=== PATIENT | male | born 1990 | race American Indian/Alaskan Native ===

== ENCOUNTER 2017-06-27 19:49 | Emergency (ER) | payer OTHER ==
[2017-06-27 22:15] LABS: INR 0.89 (0.87-1.13)
[2017-06-27 22:16] LABS: Partial Thromboplastin Time 28.1 Sec. (24.2-36.6)
--- NOTE | 2017-06-27 23:30 | XRay Report ---
FINAL REPORT PROCEDURE: XR CHEST ROUTINE 2V TECHNIQUE: PA and lateral chest radiographs were obtained. CPT 12562 HISTORY: BHARATH COMPARISON: No prior studies are available for comparison. FINDINGS: Heart: Normal. Mediastinum/Vessels: Normal. Lungs/Pleural space: Normal. Bony thorax: No acute osseous abnormality. Other: IMPRESSION: Normal examination.
[2017-06-28 00:37] LABS: Basophils % (Auto) 0.6 % (0.0-1.8); Eosinophils % (Auto) 3.6 % (0.0-4.3); Hematocrit 46.5 % (35.5-45.6); Hemoglobin 15.3 gm/dl (11.8-15.2); Mean Corpuscular HGB Conc 33 % (32-34); Mean Corpuscular Hemoglobin 28 pg (28-32); Mean Corpuscular Volume 85 fl (84-94); Platelet Count 209 K/mm3 (140-440); Red Blood Count 5.48 M/mm3 (3.65-5.03); Red Cell Distribution Width 14.9 % (13.2-15.2); White Blood Count 9.8 K/mm3 (4.5-11.0)
--- NOTE | 2017-06-28 00:42 | Emergency Department Report ---
ED Abdominal Pain HPI - General Chief Complaint: Dyspnea/Respdistress Stated Complaint: C/P Time Seen by Provider: 06/27/17 23:06 Source: patient Mode of arrival: Ambulatory Limitations: No Limitations - History of Present Illness Initial Comments: 27-year-old male past medical history none presents with complaint of 4 days of intermittent epigastric pain with associated nausea. Pain is currently mild. Patient is pointing to the right upper quadrant. Feels slightly nauseous. Denies fevers or chills denies diarrhea, passing gas and stool normally. Denies any bilious vomiting. MD Complaint: abdominal pain Onset/Timin -: days(s) Time: 03:00 Location: RUQ, epigastric Radiation: RUQ, epigastric Migration to: RUQ Severity: moderate Severity scale (0 -10): 5 Quality: aching Consistency: intermittent Associated Symptoms: nausea, vomiting - Related Data Previous Rx's Medication Instructions Recorded Last Taken Type Famotidine [Pepcid] 20 mg PO BID PRN #30 tablet 06/28/17 Unknown Rx HYDROcodone/ACETAMINOPHEN [[place] 1 each PO Q6H PRN #12 tablet 06/28/17 Unknown Rx 5-325 Tablet] Ibuprofen [Motrin] 800 mg PO Q8HR PRN #30 tablet 06/28/17 Unknown Rx Ondansetron [Zofran Odt] 4 mg PO Q8H #12 tab.rapdis 06/28/17 Unknown Rx Allergies Allergy/AdvReac Type Severity Reaction Status Date / Time No Known Allergies Allergy Unverified 06/27/17 21:42 ED Review of Systems ROS: Stated complaint: C/P Other details as noted in HPI Constitutional: denies: chills, fever Eyes: denies: eye pain, eye discharge, vision change ENT: denies: ear pain, throat pain Respiratory: denies: cough, shortness of breath, wheezing Cardiovascular: denies: chest pain, palpitations Endocrine: no symptoms reported Gastrointestinal: abdominal pain, nausea, vomiting. denies: diarrhea Genitourinary: denies: urgency, dysuria Musculoskeletal: denies: back pain, joint swelling, arthralgia Skin: denies: rash, lesions Neurological: denies: headache, weakness, paresthesias Psychiatric: denies: anxiety, depression Hematological/Lymphatic: denies: easy bleeding, easy bruising ED Past Medical Hx - Past Medical History Previous Medical History?: No - Surgical History Past Surgical History?: No - Social History Smoking Status: Never Smoker - Medications Home Medications: Home Medications Medication Instructions Recorded Confirmed Last Taken Type Famotidine [Pepcid] 20 mg PO BID PRN #30 tablet 06/28/17 Unknown Rx HYDROcodone/ACETAMINOPHEN [[place] 1 each PO Q6H PRN #12 tablet 06/28/17 Unknown Rx 5-325 Tablet] Ibuprofen [Motrin] 800 mg PO Q8HR PRN #30 tablet 06/28/17 Unknown Rx Ondansetron [Zofran Odt] 4 mg PO Q8H #12 tab.rapdis 06/28/17 Unknown Rx ED Physical Exam - General Limitations: No Limitations General appearance: alert, in no apparent distress - Head Head exam: Present: atraumatic, normocephalic - Eye Eye exam: Present: normal appearance, PERRL, EOMI - ENT ENT exam: Present: mucous membranes moist - Neck Neck exam: Present: normal inspection - Respiratory Respiratory exam: Present: normal lung sounds bilaterally. Absent: respiratory distress - Cardiovascular Cardiovascular Exam: Present: regular rate, normal rhythm. Absent: systolic murmur, diastolic murmur, rubs, gallop - GI/Abdominal GI/Abdominal exam: Present: tenderness (positive Robles's sign right upper quadrant tenderness on exam, negative iliopsoas and negative Rovsing's negative tenderness at McBurney's point), normal bowel sounds - Rectal Rectal exam: Present: deferred - Extremities Exam Extremities exam: Present: normal inspection - Back Exam Back exam: Present: normal inspection - Neurological Exam Neurological exam: Present: alert, oriented X3, CN II-XII intact, normal gait - Psychiatric Psychiatric exam: Present: normal affect, normal mood - Skin Skin exam: Present: warm, dry, intact, normal color. Absent: rash ED Course Vital Signs 06/27/17 06/27/17 21:40 22:40 Temperature 98 F Pulse Rate 67 83 Respiratory 18 18 Rate Blood Pressure 134/69 Blood Pressure 126/58 [Left] O2 Sat by Pulse 100 100 Oximetry ED Medical Decision Making - Lab Data Result diagrams: 06/28/17 00:07 06/28/17 00:07 - Medical Decision Making A/P: Biliary colic 1-right upper quadrant ultrasound shows gallstones but no acute cholecystitis on exam. Lipase and lactic acid WNL. NO SIRS criteria met. 2-labs unremarkable. Case discussed with before discharge 3-short course Crane, Zofran when necessary 4- I referred patient to general surgery and advised him to return to the ED for worsening the right upper quadrant pain or epigastric pain and inability to tolerate by mouth fevers chills or lethargy. Patient currently tolerating by mouth fluid and food without difficulty. I educated him on biliary colic. Patient's family member present at bedside for this discussion Critical care attestation.: If time is entered above; I have spent that time in minutes in the direct care of this critically ill patient, excluding procedure time. ED Disposition Clinical Impression: Biliary colic Nausea & vomiting Qualifiers: Vomiting type: unspecified Vomiting Intractability: non-intractable Qualified Code(s): R11.2 - Nausea with vomiting, unspecified Abdominal pain Qualifiers: Abdominal location: right upper quadrant Qualified Code(s): R10.11 - Right upper quadrant pain Disposition: TO HOME OR SELFCARE Is pt being admited?: No Does the pt Need Aspirin: No Condition: Stable Instructions: Biliary Colic (ED) Prescriptions: Famotidine [Pepcid] 20 mg PO BID PRN #30 tablet PRN Reason: Indigestion HYDROcodone/ACETAMINOPHEN [[place] 5-325 Tablet] 1 each PO Q6H PRN #12 tablet PRN Reason: Pain Ibuprofen [Motrin] 800 mg PO Q8HR PRN #30 tablet PRN Reason: Pain Ondansetron [Zofran Odt] 4 mg PO Q8H #12 tab.rapdis Referrals: JASWANT PAUL DO [Staff Physician] - 3-5 Days EVANGELINA ORTEGA MD [Staff Physician] - 3-5 Days Forms: Accompanied Note, Work/School Release Form(ED) Time of Disposition: 04:11
[2017-06-28] MEDS ORDERED: ZOFRAN ODT PO ONE (01:08)
[2017-06-28] MEDS ORDERED: NORCO 5/325 PO ONE (01:08)
[2017-06-28] MEDS ORDERED: PEPCID PO ONE (01:08)
[2017-06-28 01:12] LABS: Amylase 100 units/L (27-131); Anion Gap 19 mmol/L; BUN/Creatinine Ratio 14; Blood Urea Nitrogen 10 mg/dL (9-20); Calcium 9.5 mg/dL (8.4-10.2); Carbon Dioxide 26 mmol/L (22-30); Chloride 96.8 mmol/L (98-107); Glucose 87 mg/dL (75-100); Potassium 3.7 mmol/L (3.6-5.0); Sodium 138 mmol/L (137-145)
[2017-06-28 01:16] LABS: Alanine Aminotransferase 67 units/L (7-56); Albumin 4.4 g/dL (3.9-5); Albumin/Globulin Ratio 1.9 %; Alkaline Phosphatase 83 units/L (35-129); Lipase 56 units/L (13-60); Total Protein 6.7 g/dL (6.3-8.2)
[2017-06-28 01:23] LABS: Bilirubin,Direct < 0.2 mg/dL (0-0.2); Bilirubin,Indirect 0.6 mg/dL
--- NOTE | 2017-06-28 03:14 | Ultrasound Report ---
FINAL REPORT PROCEDURE: US ABDOMEN LIMITED TECHNIQUE: Real-time sonography in multiple planes of the gallbladder fossa and CBD with imaging of the adjacent liver, pancreas, and right kidney was performed with image documentation. CPT 81363 HISTORY: RUQ pain ? gallstine dilation of bile ducts COMPARISON: No prior studies are available for comparison. FINDINGS: Liver: Normal size and echotexture with no evidence of cystic or solid mass lesion. Gallbladder: There are gallstones. There is no wall thickening or pericholecystic fluid.. Intrahepatic bile ducts: Normal . Extrahepatic bile ducts: Common bile duct measures 6.5 millimeters.. Pancreas: Obscured by bowel gas.. Right kidney: Normal echotexture. No focal renal mass, calculus, or hydronephrosis. Other: No free fluid. IMPRESSION: There is cholelithiasis without evidence of cholecystitis or biliary ductal dilatation
[2017-06-28 05:19] VITALS: BP 145/74
== END 2017-06-28 04:30 | disposition home or self-care (01) ==
LOC: ED 19:49
DX: K80.50 Calculus of bile duct without cholangitis or cholecystitis without obstruction (principal); R11.2 Nausea with vomiting, unspecified; R10.11 Right upper quadrant pain
CPT/HCPCS: 36415; 71020; 76705; 80048; 80074; 82140; 82150; 83690; 84484; 85025; 85379; 85610; 85730; 93005; 93010; Q0162

== ENCOUNTER 2018-02-07 07:54 | Inpatient (IN) | payer OTHER ==
[2018-02-07] MEDS ORDERED: TORADOL IV ONE (09:46)
[2018-02-07] MEDS ORDERED: NACL 0.9% 1000 ML 1,000 ML IV ONE (09:46)
[2018-02-07] MEDS ORDERED: ZOFRAN IV ONE (09:46)
--- NOTE | 2018-02-07 09:57 | Emergency Department Report ---
ED Abdominal Pain HPI - General Chief Complaint: Back Pain/Injury Stated Complaint: BACK PAIN Time Seen by Provider: 02/07/18 09:24 Source: patient Mode of arrival: Ambulatory Limitations: No Limitations - History of Present Illness Initial Comments: 27-year-old male past medical history biliary colic presents with complaint of 3 days of persistent right upper quadrant pain with associated nausea and vomiting. Pain radiates to the back. Patient states she was evaluated at emergency department at [facility] for this issue. Patient is awake alert and oriented 3 appears uncomfortable. Denies dysuria or hematuria or increased urinary frequency. Patient states he has been vomiting and has not been able to take his analgesics as prescribed. Patient was given referral to outpatient surgery but has not followed up. MD Complaint: abdominal pain Onset/Timin -: days(s) Location: RUQ Radiation: back Migration to: RUQ Severity: severe Severity scale (0 -10): 8 Quality: sharp Consistency: constant Worsens With: eating Associated Symptoms: denies other symptoms - Related Data Previous Rx's Medication Instructions Recorded Last Taken Type Famotidine [Pepcid] 20 mg PO BID PRN #30 tablet 06/28/17 Unknown Rx HYDROcodone/ACETAMINOPHEN [[place] 1 each PO Q6H PRN #12 tablet 06/28/17 Unknown Rx 5-325 Tablet] Ibuprofen [Motrin] 800 mg PO Q8HR PRN #30 tablet 06/28/17 Unknown Rx Ondansetron [Zofran Odt] 4 mg PO Q8H #12 tab.rapdis 06/28/17 Unknown Rx Allergies Allergy/AdvReac Type Severity Reaction Status Date / Time No Known Allergies Allergy Unverified 06/27/17 21:42 ED Review of Systems ROS: Stated complaint: BACK PAIN Other details as noted in HPI Constitutional: denies: chills, fever Eyes: denies: eye pain, eye discharge, vision change ENT: denies: ear pain, throat pain Respiratory: denies: cough, shortness of breath, wheezing Cardiovascular: denies: chest pain, palpitations Endocrine: no symptoms reported Gastrointestinal: abdominal pain, nausea, vomiting. denies: diarrhea Genitourinary: denies: urgency, dysuria Musculoskeletal: denies: back pain, joint swelling, arthralgia Skin: denies: rash, lesions Neurological: denies: headache, weakness, paresthesias Psychiatric: denies: anxiety, depression Hematological/Lymphatic: denies: easy bleeding, easy bruising ED Past Medical Hx - Past Medical History Previous Medical History?: Yes Additional medical history: Gallstones - Surgical History Past Surgical History?: No - Social History Smoking Status: Former Smoker Substance Use Type: Marijuana - Medications Home Medications: Home Medications Medication Instructions Recorded Confirmed Last Taken Type Famotidine [Pepcid] 20 mg PO BID PRN #30 tablet 06/28/17 Unknown Rx HYDROcodone/ACETAMINOPHEN [[place] 1 each PO Q6H PRN #12 tablet 06/28/17 Unknown Rx 5-325 Tablet] Ibuprofen [Motrin] 800 mg PO Q8HR PRN #30 tablet 06/28/17 Unknown Rx Ondansetron [Zofran Odt] 4 mg PO Q8H #12 tab.rapdis 06/28/17 Unknown Rx ED Physical Exam - General Limitations: No Limitations General appearance: alert, in no apparent distress - Head Head exam: Present: atraumatic, normocephalic - Eye Eye exam: Present: normal appearance, PERRL, EOMI - ENT ENT exam: Present: mucous membranes moist - Neck Neck exam: Present: normal inspection - Respiratory Respiratory exam: Present: normal lung sounds bilaterally. Absent: respiratory distress - Cardiovascular Cardiovascular Exam: Present: regular rate, normal rhythm. Absent: systolic murmur, diastolic murmur, rubs, gallop - GI/Abdominal GI/Abdominal exam: Present: tenderness (right upper quadrant tenderness on exam) , normal bowel sounds - Rectal Rectal exam: Present: deferred - Extremities Exam Extremities exam: Present: normal inspection - Back Exam Back exam: Present: normal inspection - Neurological Exam Neurological exam: Present: alert, oriented X3 - Psychiatric Psychiatric exam: Present: normal affect, normal mood - Skin Skin exam: Present: warm, dry, intact, normal color. Absent: rash ED Course Vital Signs 02/07/18 02/07/18 08:00 10:08 Temperature 97.8 F Pulse Rate 82 Respiratory 18 20 Rate Blood Pressure 124/80 O2 Sat by Pulse 99 Oximetry ED Medical Decision Making - Lab Data Result diagrams: 02/07/18 09:55 02/07/18 09:55 - Medical Decision Making A/P: Abdominal pain, acute cholecystitis 1-case discussed with on-call surgeon who spoke with 2-patient to be admitted for IV fluid resuscitation and evaluation by general surgery 3-case discussed with hospitalist Dr. Zambrano 4- nothing by mouth, IV fluid, antiemetics, analgesics. I explained clinical plan to the patient and he is in agreement Critical care attestation.: If time is entered above; I have spent that time in minutes in the direct care of this critically ill patient, excluding procedure time. ED Disposition Clinical Impression: Acute cholecystitis Disposition: 09 OP ADMIT IP TO THIS HOSP Is pt being admited?: Yes Does the pt Need Aspirin: No Condition: Stable Referrals: PRIMARY CARE, [Primary Care Provider] - 3-5 Days
[2018-02-07 10:15] LABS: Basophils # (Auto) 0.1 K/mm3 (0.0-0.1); Basophils % (Auto) 0.7 % (0.0-1.8); Eosinophils # (Auto) 0.2 K/mm3 (0.0-0.4); Eosinophils % (Auto) 2.3 % (0.0-4.3); Hemoglobin 16.9 gm/dl (11.8-15.2); Lymphocytes # (Auto) 1.4 K/mm3 (1.2-5.4); Lymphocytes % (Auto) 16.2 % (13.4-35.0); Mean Corpuscular HGB Conc 34 % (32-34); Mean Corpuscular Hemoglobin 29 pg (28-32); Mean Corpuscular Volume 85 fl (84-94); Monocytes # (Auto) 0.6 K/mm3 (0.0-0.8); Monocytes % (Auto) 7.3 % (0.0-7.3); Platelet Count 193 K/mm3 (140-440); Red Blood Count 5.75 M/mm3 (3.65-5.03)
[2018-02-07 10:24] LABS: INR 0.9 (0.87-1.13)
[2018-02-07 10:36] LABS: Bilirubin,Urine NEG (Negative); Blood,Urine NEG (Negative); Color,Urine Yellow (Yellow); Mucus,Urine FEW /HPF
[2018-02-07 10:41] LABS: Alanine Aminotransferase 19 units/L (7-56); Albumin 4.1 g/dL (3.9-5); BUN/Creatinine Ratio 10; Blood Urea Nitrogen 8 mg/dL (9-20); Calcium 9.1 mg/dL (8.4-10.2); Hemolysis Index 12; Lipase 27 units/L (13-60)
[2018-02-07 10:47] LABS: Bilirubin,Direct < 0.2 mg/dL (0-0.2)
--- NOTE | 2018-02-07 10:55 | Ultrasound Report ---
ULTRASOUND ABDOMEN LIMITED INDICATION: RUQ pain. History of gallstones. COMPARISON: 06/28/2017 US. FINDINGS: Right upper quadrant ultrasound suggests slight hepatic coarsening with grossly preserved contours. No focal suspicious hepatic lesion or biliary dilatation. Couple of small echogenic gallstones measuring approximately 5 mm again noted towards the gallbladder neck. Gallbladder wall thickness is 2.2 mm. Slight pericholecystic lucency as on image 30 however not entirely excluded for subtle gallbladder wall edema or pericholecystic fluid. Positive sonographic Robles's sign elicited. Gallbladder sludge also seen. CBD caliber 2.4 mm. Normal imaged pancreas, IVC and abdominal aorta. Nonhydronephrotic 10.6 x 4.6 x 4.6 cm right kidney with cortical thickness of 1.5 cm. CONCLUSION: Sonographic findings not excluded for subtle acute cholecystitis in an appropriate clinical setting in this patient with known cholelithiasis and gallbladder sludge, as described. Please correlate. Thank you for the opportunity to participate in this patient's care.
[2018-02-07] MEDS ORDERED: SUBLIMAZE IV ONE (11:13)
[2018-02-07] MEDS ORDERED: LACTATED RINGERS 1,000 ML IV ONE (12:05)
--- NOTE | 2018-02-07 13:15 | History and Physical Report ---
History of Present Illness Date of admission: 02/07/18 12:08 Chief complaint: My stomach hurts History of present illness: 27 YO Male with Obesity, cholelithiasis with biliary colic presents to ED for evaluation. Pt states that he has experienced abdominal pain for the past 1 week , with worsening symptoms over the past 3 days. Pt states that pain is 8/10, associated with nausea, and multiple episodes of vomiting, with radiation of abdominal pain to his back. Pain is worsened with meals, constant. Pt seen and evaluated in ED and found to have Acute cholecystitis. Pt admitted to medical floor. Surgery team consulted in ED. Pt placed on Iv antibiotics in ED. Past History Past Medical History: other (Obeisty, cholelithiasis.) Past Surgical History: No surgical history, Other (reviewed) Social history: single Family history: no significant family history Medications and Allergies Allergies Allergy/AdvReac Type Severity Reaction Status Date / Time No Known Allergies Allergy Unverified 06/27/17 21:42 Home Medications Medication Instructions Recorded Confirmed Last Taken Type No Known Home Medications [No 02/07/18 02/07/18 Unknown History Reported Home Medications] Review of Systems Constitutional: no weight loss, no weight gain, no fever, no chills Ears, nose, mouth and throat: no ear pain, no ear discharge, no tinnitis, no decreased hearing, no nose pain Cardiovascular: no chest pain, no orthopnea, no palpitations, no rapid/ irregular heart beat, no edema, no syncope Respiratory: no cough, no cough with sputum, no excessive sputum, no hemoptysis Gastrointestinal: abdominal pain, nausea, vomiting Genitourinary Male: no dysuria, no hematuria, no flank pain, no discharge, no urinary frequency, no urinary hesitancy, no nocturia Rectal: no pain, no incontinence, no bleeding Musculoskeletal: no neck stiffness, no neck pain, no shooting arm pain, no arm numbness/tingling, no low back pain, no shooting leg pain, no leg numbness/ tingling Integumentary: no rash, no pruritis, no redness, no sores, no wounds Neurological: no transient paralysis, no paralysis, no weakness, no parathesias , no numbness, no tingling, no seizures, no syncope Psychiatric: no anxiety, no memory loss, no change in sleep habits, no sleep disturbances, no insomnia, no hypersomnia, no change in appetite, no change in libido, no suicidal ideation Endocrine: no cold intolerance, no heat intolerance, no polyphagia, no excessive thirst, no polydipsia, no polyuria, no nocturia Hematologic/Lymphatic: no easy bruising, no easy bleeding Allergic/Immunologic: no urticaria, no allergic rhinitis, no wheezing Exam - Constitutional Vitals: Temp Pulse Resp BP Pulse Ox 98.0 F 59 L 18 120/70 99 02/07/18 12:34 02/07/18 12:34 02/07/18 12:36 02/07/18 12:34 02/07/18 12:36 General appearance: Present: mild distress, obese - EENT Eyes: Present: PERRL ENT: hearing intact, clear oral mucosa - Neck Neck: Present: supple, normal ROM - Respiratory Respiratory effort: normal Respiratory: bilateral: CTA - Cardiovascular Heart Sounds: Present: S1 & S2. Absent: rub, click - Extremities Extremities: pulses symmetrical, No edema Peripheral Pulses: within normal limits - Abdominal General gastrointestinal: Present: soft, tender, non-distended, normal bowel sounds Localized gastrointestinal: tender: diffuse Male genitourinary: Present: normal - Integumentary Integumentary: Present: clear, warm, dry - Musculoskeletal Musculoskeletal: gait normal, strength equal bilaterally - Psychiatric Psychiatric: appropriate mood/affect, intact judgment & insight - Neurologic Neurologic: CNII-XII intact, moves all extremities Results - Labs CBC & Chem 7: 02/07/18 09:55 02/07/18 09:55 Labs: Abnormal lab results 02/07/18 02/07/18 Range/Units 09:55 09:55 RBC 5.75 H (3.65-5.03) M/mm3 Hgb 16.9 H (11.8-15.2) gm/dl Hct 49.0 H (35.5-45.6) % Seg Neutrophils % 73.5 H (40.0-70.0) % BUN 8 L (9-20) mg/dL Glucose 102 H (75-100) mg/dL Assessment and Plan - Patient Problems (1) Acute cholecystitis Current Visit: Yes Status: Acute Plan to address problem: IV antibiotics, IVF resuscitation, monitor uop q shift, bowel rest, NPO status, surgery team consulted in ED (2) Obesity (BMI 30.0-34.9) Current Visit: Yes Status: Acute Plan to address problem: Increased physical activity, balanced diet at discharge. (3) DVT prophylaxis Current Visit: Yes Status: Acute Plan to address problem: SCD to ble while in bed
[2018-02-07] MEDS ORDERED: TYLENOL PO PRN (13:32)
[2018-02-07] MEDS ORDERED: SODIUM CHLORIDE FLUSH SYRINGE 10 ML IV PRN (13:32)
[2018-02-07] MEDS ORDERED: PROVENTIL IH PRN (13:32)
[2018-02-07] MEDS: D5/0.45NS 1,000 ML IV SCH (14:27)
[2018-02-07] MEDS ORDERED: LEVAQUIN 500MG/100ML 500 MG/100 ML BAG IV SCH (17:00)
[2018-02-07] MEDS: FLAGYL 500 MG/100 ML 500 MG/100 ML BAG IV SCH (17:06)
[2018-02-07] MEDS: MORPHINE IV PRN ×2 (17:06→21:52)
[2018-02-07] MEDS: LEVAQUIN 750MG/150ML 750 MG/150 ML BAG IV SCH (18:45)
[2018-02-07] MEDS: PEPCID IV SCH (21:52)
[2018-02-07] MEDS: ZOFRAN IV PRN (21:52)
[2018-02-07] MEDS: SODIUM CHLORIDE FLUSH SYRINGE 10 ML IV SCH (23:49)
[2018-02-08] MEDS: FLAGYL 500 MG/100 ML 500 MG/100 ML BAG IV SCH ×3 (00:39→16:43)
[2018-02-08 05:59] LABS: Hematocrit 43.7 % (35.5-45.6); Hemoglobin 15.2 gm/dl (11.8-15.2); Mean Corpuscular HGB Conc 35 % (32-34); Mean Corpuscular Hemoglobin 30 pg (28-32); Mean Corpuscular Volume 85 fl (84-94); Platelet Count 167 K/mm3 (140-440); Red Blood Count 5.15 M/mm3 (3.65-5.03); Red Cell Distribution Width 13.6 % (13.2-15.2)
[2018-02-08 06:23] LABS: Alanine Aminotransferase 15 units/L (7-56); Albumin 3.5 g/dL (3.9-5); BUN/Creatinine Ratio 7; Blood Urea Nitrogen 6 mg/dL (9-20); Calcium 8.7 mg/dL (8.4-10.2); Hemolysis Index 9
[2018-02-08] MEDS: PEPCID IV SCH ×2 (09:45→21:23)
[2018-02-08] MEDS: SODIUM CHLORIDE FLUSH SYRINGE 10 ML IV SCH ×2 (09:45→21:24)
[2018-02-08] MEDS ORDERED: LEVAQUIN 500MG/100ML 500 MG/100 ML BAG IV SCH (10:00)
--- NOTE | 2018-02-08 10:18 | Progress Note ---
Assessment and Plan Assessment and plan: Acute cholecystitis IV antibiotics, IVF resuscitation, monitor uop q shift, bowel rest, NPO status, surgery team consulted in ED Pain control Obesity (BMI 30.0-34.9) Increased physical activity, balanced diet at discharge. DVT prophylaxis SCD to ble while in bed History Interval history: Patient still complains of pain. Otherwise no new issues overnight. Hospitalist Physical - Constitutional Vitals: Temp Pulse Resp BP Pulse Ox 98.0 F 55 L 18 114/67 100 02/08/18 05:44 02/08/18 05:44 02/08/18 05:44 02/08/18 05:44 02/08/18 05:44 General appearance: Present: mild distress, obese - EENT Eyes: Present: PERRL, EOM intact ENT: hearing intact, clear oral mucosa, dentition normal - Neck Neck: Present: supple, normal ROM - Respiratory Respiratory effort: normal Respiratory: bilateral: CTA - Cardiovascular Rhythm: regular Heart Sounds: Present: S1 & S2. Absent: gallop, rub - Extremities Extremities: no ischemia, No edema, Full ROM - Abdominal General gastrointestinal: soft, tender (RUQ), non-distended, normal bowel sounds Localized gastrointestinal: tender: RUQ (moderate) - Integumentary Integumentary: Present: clear, warm, dry - Neurologic Neurologic: CNII-XII intact, moves all extremities Results - Labs CBC & Chem 7: 02/08/18 05:43 02/08/18 05:43 Labs: Laboratory Last Values WBC 9.4 K/mm3 (4.5-11.0) 02/08/18 05:43 RBC 5.15 M/mm3 (3.65-5.03) H 02/08/18 05:43 Hgb 15.2 gm/dl (11.8-15.2) 02/08/18 05:43 Hct 43.7 % (35.5-45.6) 02/08/18 05:43 MCV 85 fl (84-94) 02/08/18 05:43 MCH 30 pg (28-32) 02/08/18 05:43 MCHC 35 % (32-34) H 02/08/18 05:43 RDW 13.6 % (13.2-15.2) 02/08/18 05:43 Plt Count 167 K/mm3 (140-440) 02/08/18 05:43 Lymph % (Auto) 16.2 % (13.4-35.0) 02/07/18 09:55 [place] % (Auto) 7.3 % (0.0-7.3) 02/07/18 09:55 Eos % (Auto) 2.3 % (0.0-4.3) 02/07/18 09:55 Baso % (Auto) 0.7 % (0.0-1.8) 02/07/18 09:55 Lymph # 1.4 K/mm3 (1.2-5.4) 02/07/18 09:55 [place] # 0.6 K/mm3 (0.0-0.8) 02/07/18 09:55 Eos # 0.2 K/mm3 (0.0-0.4) 02/07/18 09:55 Baso # 0.1 K/mm3 (0.0-0.1) 02/07/18 09:55 Seg Neutrophils % 73.5 % (40.0-70.0) H 02/07/18 09:55 Seg Neutrophils # 6.5 K/mm3 (1.8-7.7) 02/07/18 09:55 PT 12.6 Sec. (12.2-14.9) 02/07/18 09:55 INR 0.90 (0.87-1.13) 02/07/18 09:55 Sodium 141 mmol/L (137-145) 02/08/18 05:43 Potassium 3.9 mmol/L (3.6-5.0) 02/08/18 05:43 Chloride 103.6 mmol/L (98-107) 02/08/18 05:43 Carbon Dioxide 25 mmol/L (22-30) 02/08/18 05:43 Anion Gap 16 mmol/L 02/08/18 05:43 BUN 6 mg/dL (9-20) L 02/08/18 05:43 Creatinine 0.9 mg/dL (0.8-1.5) 02/08/18 05:43 Estimated GFR > 60 ml/min 02/08/18 05:43 BUN/Creatinine Ratio 7 % 02/08/18 05:43 Glucose 88 mg/dL (75-100) 02/08/18 05:43 Lactic Acid 0.80 mmol/L (0.7-2.0) 02/07/18 09:55 Calcium 8.7 mg/dL (8.4-10.2) 02/08/18 05:43 Total Bilirubin 0.80 mg/dL (0.1-1.2) 02/08/18 05:43 Direct Bilirubin < 0.2 mg/dL (0-0.2) 02/07/18 09:55 Indirect Bilirubin 0.5 mg/dL 02/07/18 09:55 AST 21 units/L (5-40) 02/08/18 05:43 ALT 15 units/L (7-56) 02/08/18 05:43 Alkaline Phosphatase 62 units/L (35-129) 02/08/18 05:43 Total Protein 5.4 g/dL (6.3-8.2) L 02/08/18 05:43 Albumin 3.5 g/dL (3.9-5) L 02/08/18 05:43 Albumin/Globulin Ratio 1.8 % 02/08/18 05:43 Amylase 84 units/L (27-131) 02/07/18 09:55 Lipase 27 units/L (13-60) 02/07/18 09:55 Urine Color Yellow (Yellow) 02/07/18 09:59 Urine Turbidity Clear (Clear) 02/07/18 09:59 Urine pH 5.0 (5.0-7.0) 02/07/18 09:59 Ur Specific [place] 1.029 (1.003-1.030) 02/07/18 09:59 Urine Protein 30 mg/dl mg/dL (Negative) 02/07/18 09:59 Urine Glucose (UA) Neg mg/dL (Negative) 02/07/18 09:59 Urine Ketones 80 mg/dL (Negative) 02/07/18 09:59 Urine Blood Neg (Negative) 02/07/18 09:59 Urine Nitrite Neg (Negative) 02/07/18 09:59 Urine Bilirubin Neg (Negative) 02/07/18 09:59 Urine Urobilinogen 2.0 mg/dL (<2.0) 02/07/18 09:59 Ur Leukocyte Esterase Neg (Negative) 02/07/18 09:59 Urine WBC (Auto) 1.0 /HPF (0.0-6.0) 02/07/18 09:59 Urine RBC (Auto) 3.0 /HPF (0.0-6.0) 02/07/18 09:59 U Epithel Cells (Auto) < 1.0 /HPF (0-13.0) 02/07/18 09:59 Urine Mucus Few /HPF 02/07/18 09:59 Blood Type B POSITIVE 02/07/18 09:55 Antibody Screen Negative 02/07/18 09:55
[2018-02-08] MEDS: DILAUDID IV PRN ×2 (11:08→21:23)
--- NOTE | 2018-02-08 12:34 | Progress Note ---
Assessment and Plan Full consult dictated 27 y/o healthy male. cholecystitis. seen in [facility] ER (where pt lives) but apparently not admitted. Seen in ER here yesterday c/o epig and RUQ abd pain + N&V Abd softer, less tender today. GB US - + stones imp cholecystitis continue NPO and IV Levaquin will schedule for lap GB Selected Entries 02/08/18 11:50 Temperature 98.3 F Pulse Rate 56 L Respiratory 20 Rate Blood Pressure 109/55 Laboratory Tests 02/07/18 02/08/18 02/08/18 09:55 05:43 05:43 WBC 9.4 Hgb 15.2 Hct 43.7 Sodium 141 Potassium 3.9 Chloride 103.6 Carbon Dioxide 25 BUN 6 L Creatinine 0.9 Total Bilirubin 0.80 AST 21 ALT 15 Alkaline Phosphatase 62 Amylase 84 Lipase 27 Objective Vital Signs - 12hr 02/08/18 02/08/18 05:44 11:50 Temperature 98.0 F 98.3 F Pulse Rate 55 L 56 L Respiratory 18 20 Rate Blood Pressure 114/67 109/55 O2 Sat by Pulse 100 97 Oximetry - Labs 02/08/18 05:43 02/08/18 05:43 Diabetes panel 02/08/18 Range/Units 05:43 Sodium 141 (137-145) mmol/L Potassium 3.9 (3.6-5.0) mmol/L Chloride 103.6 (98-107) mmol/L Carbon Dioxide 25 (22-30) mmol/L BUN 6 L (9-20) mg/dL Creatinine 0.9 (0.8-1.5) mg/dL Glucose 88 (75-100) mg/dL Calcium 8.7 (8.4-10.2) mg/dL AST 21 (5-40) units/L ALT 15 (7-56) units/L Alkaline Phosphatase 62 (35-129) units/L Total Protein 5.4 L (6.3-8.2) g/dL Albumin 3.5 L (3.9-5) g/dL Calcium panel 02/08/18 Range/Units 05:43 Calcium 8.7 (8.4-10.2) mg/dL Albumin 3.5 L (3.9-5) g/dL Pituitary panel 02/08/18 Range/Units 05:43 Sodium 141 (137-145) mmol/L Potassium 3.9 (3.6-5.0) mmol/L Chloride 103.6 (98-107) mmol/L Carbon Dioxide 25 (22-30) mmol/L BUN 6 L (9-20) mg/dL Creatinine 0.9 (0.8-1.5) mg/dL Glucose 88 (75-100) mg/dL Calcium 8.7 (8.4-10.2) mg/dL Adrenal panel 02/08/18 Range/Units 05:43 Sodium 141 (137-145) mmol/L Potassium 3.9 (3.6-5.0) mmol/L Chloride 103.6 (98-107) mmol/L Carbon Dioxide 25 (22-30) mmol/L BUN 6 L (9-20) mg/dL Creatinine 0.9 (0.8-1.5) mg/dL Glucose 88 (75-100) mg/dL Calcium 8.7 (8.4-10.2) mg/dL Total Bilirubin 0.80 (0.1-1.2) mg/dL AST 21 (5-40) units/L ALT 15 (7-56) units/L Alkaline Phosphatase 62 (35-129) units/L Total Protein 5.4 L (6.3-8.2) g/dL Albumin 3.5 L (3.9-5) g/dL
[2018-02-08] MEDS: LEVAQUIN 750MG/150ML 750 MG/150 ML BAG IV SCH (17:50)
[2018-02-08] MEDS: D5/0.45NS 1,000 ML IV SCH (17:53)
[2018-02-08] MEDS: ZOFRAN IV PRN (21:32)
--- NOTE | 2018-02-08 22:06 | Consultation ---
REASON FOR CONSULTATION: Rule out cholecystitis. HISTORY OF PRESENT ILLNESS: The patient is a healthy 27-year-old gentleman who was apparently seen at [facility] with a chief complaint of epigastric and right upper quadrant abdominal pain and told he had cholecystitis. However, it appears the patient was not admitted there and subsequently arrived to the ER here at [facility] with same complaints. PAST MEDICAL HISTORY: Essentially negative. PAST SURGICAL HISTORY: Negative. ALLERGIES: No known allergies. MEDICATIONS: No medications. FAMILY HISTORY: Negative. SOCIAL HISTORY: Denies any smoking or drinking. REVIEW OF SYSTEMS: Noncontributory. PHYSICAL EXAMINATION: GENERAL: At this time reveals the patient to be awake, alert, cooperative, does state he still has some pain, but is " VITAL SIGNS: Shown to be afebrile with a temperature 98.3, blood pressure 109/55, pulse of 56, respirations of 18. HEENT: Pupils are equal and reactive to light and accommodation. Sclerae is nonicteric. ABDOMEN: Examination of the abdomen reveals to be flat and soft. There is mild right upper quadrant tenderness, no guarding can be elicited at this time. Bowel sounds are present. LABORATORY DATA: Lab work at present includes a CBC which shows a white count of 9.4, H and H is 15 and 43. Electrolytes are essentially within normal limits. Total bilirubin is 0.8, AST is 21, ALT 15, alkaline phosphatase is 62. Amylase is normal at 84 and lipase is normal at 27. A gallbladder ultrasound was performed, which revealed some gallstone as well as sludge. Gallbladder wall is approximately 2.2 mm. IMPRESSION: At this time is that of a healthy 27-year-old male, rule out cholecystitis. RECOMMENDATION: Would be to keep the patient n.p.o. while his pain remains present. Also, IV fluid hydration as well as IV Levaquin. I will monitor clinically over the weekend and schedule for laparoscopic cholecystectomy on Sunday. JOB# [id number] LAVINIA/NTS
[2018-02-09] MEDS: FLAGYL 500 MG/100 ML 500 MG/100 ML BAG IV SCH ×3 (00:25→17:39)
[2018-02-09 06:09] LABS: Basophils % (Auto) 0.6 % (0.0-1.8); Eosinophils # (Auto) 0.4 K/mm3 (0.0-0.4); Eosinophils % (Auto) 5.4 % (0.0-4.3); Hematocrit 45.6 % (35.5-45.6); Hemoglobin 15.6 gm/dl (11.8-15.2); Lymphocytes # (Auto) 1.2 K/mm3 (1.2-5.4); Lymphocytes % (Auto) 15.5 % (13.4-35.0); Mean Corpuscular HGB Conc 34 % (32-34); Mean Corpuscular Hemoglobin 29 pg (28-32); Mean Corpuscular Volume 86 fl (84-94); Monocytes # (Auto) 0.9 K/mm3 (0.0-0.8); Monocytes % (Auto) 12.2 % (0.0-7.3); Platelet Count 170 K/mm3 (140-440); Red Cell Distribution Width 13.8 % (13.2-15.2)
[2018-02-09 06:32] LABS: BUN/Creatinine Ratio 5; Blood Urea Nitrogen 4 mg/dL (9-20); Calcium 8.9 mg/dL (8.4-10.2); Hemolysis Index 3
[2018-02-09] MEDS: PEPCID IV SCH ×2 (10:29→21:44)
[2018-02-09] MEDS: SODIUM CHLORIDE FLUSH SYRINGE 10 ML IV SCH ×2 (10:29→21:45)
--- NOTE | 2018-02-09 11:14 | Progress Note ---
Assessment and Plan Assessment and plan: Acute cholecystitis IV antibiotics, IVF resuscitation, monitor uop q shift, bowel rest, NPO status Continue Pain control Patient scheduled for laparoscopic cholecystectomy on Sunday. Obesity (BMI 30.0-34.9) Increased physical activity, balanced diet at discharge. DVT prophylaxis SCD to ble while in bed History Interval history: Patient still complains of pain. Otherwise no new issues overnight. Hospitalist Physical - Constitutional Vitals: Temp Pulse Resp BP Pulse Ox 98.4 F 51 L 19 113/59 95 02/09/18 06:05 02/09/18 06:05 02/09/18 06:05 02/09/18 06:05 02/09/18 08:31 General appearance: Present: mild distress, obese - EENT Eyes: Present: PERRL, EOM intact ENT: hearing intact, clear oral mucosa, dentition normal - Neck Neck: Present: supple, normal ROM - Respiratory Respiratory effort: normal Respiratory: bilateral: CTA - Cardiovascular Rhythm: regular Heart Sounds: Present: S1 & S2. Absent: gallop, rub - Extremities Extremities: no ischemia, No edema, Full ROM - Abdominal General gastrointestinal: soft, non-tender, non-distended, normal bowel sounds - Integumentary Integumentary: Present: clear, warm, dry - Neurologic Neurologic: CNII-XII intact, moves all extremities Results - Labs CBC & Chem 7: 02/09/18 05:29 02/09/18 05:29 Labs: Laboratory Last Values WBC 7.6 K/mm3 (4.5-11.0) 02/09/18 05:29 RBC 5.30 M/mm3 (3.65-5.03) H 02/09/18 05:29 Hgb 15.6 gm/dl (11.8-15.2) H 02/09/18 05:29 Hct 45.6 % (35.5-45.6) 02/09/18 05:29 MCV 86 fl (84-94) 02/09/18 05:29 MCH 29 pg (28-32) 02/09/18 05:29 MCHC 34 % (32-34) 02/09/18 05:29 RDW 13.8 % (13.2-15.2) 02/09/18 05:29 Plt Count 170 K/mm3 (140-440) 02/09/18 05:29 Lymph % (Auto) 15.5 % (13.4-35.0) 02/09/18 05:29 [place] % (Auto) 12.2 % (0.0-7.3) H 02/09/18 05:29 Eos % (Auto) 5.4 % (0.0-4.3) H 02/09/18 05:29 Baso % (Auto) 0.6 % (0.0-1.8) 02/09/18 05:29 Lymph # 1.2 K/mm3 (1.2-5.4) 02/09/18 05:29 [place] # 0.9 K/mm3 (0.0-0.8) H 02/09/18 05:29 Eos # 0.4 K/mm3 (0.0-0.4) 02/09/18 05:29 Baso # 0.0 K/mm3 (0.0-0.1) 02/09/18 05:29 Seg Neutrophils % 66.3 % (40.0-70.0) 02/09/18 05:29 Seg Neutrophils # 5.1 K/mm3 (1.8-7.7) 02/09/18 05:29 PT 12.6 Sec. (12.2-14.9) 02/07/18 09:55 INR 0.90 (0.87-1.13) 02/07/18 09:55 Sodium 139 mmol/L (137-145) 02/09/18 05:29 Potassium 3.8 mmol/L (3.6-5.0) 02/09/18 05:29 Chloride 100.1 mmol/L (98-107) 02/09/18 05:29 Carbon Dioxide 24 mmol/L (22-30) 02/09/18 05:29 Anion Gap 19 mmol/L 02/09/18 05:29 BUN 4 mg/dL (9-20) L 02/09/18 05:29 Creatinine 0.8 mg/dL (0.8-1.5) 02/09/18 05:29 Estimated GFR > 60 ml/min 02/09/18 05:29 BUN/Creatinine Ratio 5 % 02/09/18 05:29 Glucose 80 mg/dL (75-100) 02/09/18 05:29 Lactic Acid 0.80 mmol/L (0.7-2.0) 02/07/18 09:55 Calcium 8.9 mg/dL (8.4-10.2) 02/09/18 05:29 Total Bilirubin 0.80 mg/dL (0.1-1.2) 02/08/18 05:43 Direct Bilirubin < 0.2 mg/dL (0-0.2) 02/07/18 09:55 Indirect Bilirubin 0.5 mg/dL 02/07/18 09:55 AST 21 units/L (5-40) 02/08/18 05:43 ALT 15 units/L (7-56) 02/08/18 05:43 Alkaline Phosphatase 62 units/L (35-129) 02/08/18 05:43 Total Protein 5.4 g/dL (6.3-8.2) L 02/08/18 05:43 Albumin 3.5 g/dL (3.9-5) L 02/08/18 05:43 Albumin/Globulin Ratio 1.8 % 02/08/18 05:43 Amylase 84 units/L (27-131) 02/07/18 09:55 Lipase 27 units/L (13-60) 02/07/18 09:55 Urine Color Yellow (Yellow) 02/07/18 09:59 Urine Turbidity Clear (Clear) 02/07/18 09:59 Urine pH 5.0 (5.0-7.0) 02/07/18 09:59 Ur Specific [place] 1.029 (1.003-1.030) 02/07/18 09:59 Urine Protein 30 mg/dl mg/dL (Negative) 02/07/18 09:59 Urine Glucose (UA) Neg mg/dL (Negative) 02/07/18 09:59 Urine Ketones 80 mg/dL (Negative) 02/07/18 09:59 Urine Blood Neg (Negative) 02/07/18 09:59 Urine Nitrite Neg (Negative) 02/07/18 09:59 Urine Bilirubin Neg (Negative) 02/07/18 09:59 Urine Urobilinogen 2.0 mg/dL (<2.0) 02/07/18 09:59 Ur Leukocyte Esterase Neg (Negative) 02/07/18 09:59 Urine WBC (Auto) 1.0 /HPF (0.0-6.0) 02/07/18 09:59 Urine RBC (Auto) 3.0 /HPF (0.0-6.0) 02/07/18 09:59 U Epithel Cells (Auto) < 1.0 /HPF (0-13.0) 02/07/18 09:59 Urine Mucus Few /HPF 02/07/18 09:59 Blood Type B POSITIVE 02/07/18 09:55 Antibody Screen Negative 02/07/18 09:55
[2018-02-09] MEDS: MORPHINE IV PRN (14:43)
[2018-02-09] MEDS: D5/0.45NS 1,000 ML IV SCH (17:38)
[2018-02-09] MEDS: LEVAQUIN 750MG/150ML 750 MG/150 ML BAG IV SCH (21:44)
[2018-02-10] MEDS: FLAGYL 500 MG/100 ML 500 MG/100 ML BAG IV SCH ×4 (01:05→23:34)
[2018-02-10] MEDS: ZOFRAN IV PRN ×2 (07:00→21:58)
[2018-02-10 08:55] LABS: Basophils # (Auto) 0.1 K/mm3 (0.0-0.1); Basophils % (Auto) 0.8 % (0.0-1.8); Eosinophils # (Auto) 0.2 K/mm3 (0.0-0.4); Eosinophils % (Auto) 2.8 % (0.0-4.3); Hematocrit 47.8 % (35.5-45.6); Hemoglobin 16.1 gm/dl (11.8-15.2); Lymphocytes % (Auto) 13.4 % (13.4-35.0); Mean Corpuscular HGB Conc 34 % (32-34); Mean Corpuscular Hemoglobin 29 pg (28-32); Mean Corpuscular Volume 86 fl (84-94); Monocytes # (Auto) 0.9 K/mm3 (0.0-0.8); Monocytes % (Auto) 12.1 % (0.0-7.3); Platelet Count 179 K/mm3 (140-440); Red Blood Count 5.56 M/mm3 (3.65-5.03); Red Cell Distribution Width 13.8 % (13.2-15.2)
[2018-02-10] MEDS: PEPCID IV SCH ×2 (09:04→21:46)
[2018-02-10] MEDS: SODIUM CHLORIDE FLUSH SYRINGE 10 ML IV SCH ×2 (09:08→21:46)
[2018-02-10 09:17] LABS: BUN/Creatinine Ratio 4; Blood Urea Nitrogen 4 mg/dL (9-20); Hemolysis Index 38
--- NOTE | 2018-02-10 11:23 | Progress Note ---
Assessment and Plan Assessment and plan: Acute cholecystitis IV antibiotics, IVF resuscitation, monitor uop q shift, bowel rest, NPO status Continue Pain control Patient scheduled for laparoscopic cholecystectomy on Sunday. Obesity (BMI 30.0-34.9) Increased physical activity, balanced diet at discharge. DVT prophylaxis SCD to ble while in bed History Interval history: Patient still complains of pain. Otherwise no new issues overnight. Hospitalist Physical - Constitutional Vitals: Temp Pulse Resp BP Pulse Ox 98.2 F 63 18 125/74 99 02/10/18 05:31 02/10/18 05:31 02/10/18 05:31 02/10/18 05:31 02/10/18 05:31 General appearance: Present: no acute distress, obese - EENT Eyes: Present: PERRL, EOM intact ENT: hearing intact, clear oral mucosa, dentition normal - Neck Neck: Present: supple, normal ROM - Respiratory Respiratory effort: normal Respiratory: bilateral: CTA - Cardiovascular Rhythm: regular Heart Sounds: Present: S1 & S2. Absent: gallop, rub - Extremities Extremities: no ischemia, No edema, Full ROM - Abdominal General gastrointestinal: soft, non-tender, non-distended, normal bowel sounds - Integumentary Integumentary: Present: clear, warm, dry - Neurologic Neurologic: CNII-XII intact, moves all extremities Results - Labs CBC & Chem 7: 02/10/18 07:55 02/10/18 07:55 Labs: Laboratory Last Values WBC 7.4 K/mm3 (4.5-11.0) 02/10/18 07:55 RBC 5.56 M/mm3 (3.65-5.03) H 02/10/18 07:55 Hgb 16.1 gm/dl (11.8-15.2) H 02/10/18 07:55 Hct 47.8 % (35.5-45.6) H 02/10/18 07:55 MCV 86 fl (84-94) 02/10/18 07:55 MCH 29 pg (28-32) 02/10/18 07:55 MCHC 34 % (32-34) 02/10/18 07:55 RDW 13.8 % (13.2-15.2) 02/10/18 07:55 Plt Count 179 K/mm3 (140-440) 02/10/18 07:55 Lymph % (Auto) 13.4 % (13.4-35.0) 02/10/18 07:55 [place] % (Auto) 12.1 % (0.0-7.3) H 02/10/18 07:55 Eos % (Auto) 2.8 % (0.0-4.3) 02/10/18 07:55 Baso % (Auto) 0.8 % (0.0-1.8) 02/10/18 07:55 Lymph # 1.0 K/mm3 (1.2-5.4) L 02/10/18 07:55 [place] # 0.9 K/mm3 (0.0-0.8) H 02/10/18 07:55 Eos # 0.2 K/mm3 (0.0-0.4) 02/10/18 07:55 Baso # 0.1 K/mm3 (0.0-0.1) 02/10/18 07:55 Seg Neutrophils % 70.9 % (40.0-70.0) H 02/10/18 07:55 Seg Neutrophils # 5.3 K/mm3 (1.8-7.7) 02/10/18 07:55 PT 12.6 Sec. (12.2-14.9) 02/07/18 09:55 INR 0.90 (0.87-1.13) 02/07/18 09:55 Sodium 137 mmol/L (137-145) 02/10/18 07:55 Potassium 4.0 mmol/L (3.6-5.0) 02/10/18 07:55 Chloride 98.7 mmol/L (98-107) 02/10/18 07:55 Carbon Dioxide 19 mmol/L (22-30) L 02/10/18 07:55 Anion Gap 23 mmol/L 02/10/18 07:55 BUN 4 mg/dL (9-20) L 02/10/18 07:55 Creatinine 0.9 mg/dL (0.8-1.5) 02/10/18 07:55 Estimated GFR > 60 ml/min 02/10/18 07:55 BUN/Creatinine Ratio 4 % 02/10/18 07:55 Glucose 79 mg/dL (75-100) 02/10/18 07:55 Lactic Acid 0.80 mmol/L (0.7-2.0) 02/07/18 09:55 Calcium 9.0 mg/dL (8.4-10.2) 02/10/18 07:55 Total Bilirubin 0.80 mg/dL (0.1-1.2) 02/08/18 05:43 Direct Bilirubin < 0.2 mg/dL (0-0.2) 02/07/18 09:55 Indirect Bilirubin 0.5 mg/dL 02/07/18 09:55 AST 21 units/L (5-40) 02/08/18 05:43 ALT 15 units/L (7-56) 02/08/18 05:43 Alkaline Phosphatase 62 units/L (35-129) 02/08/18 05:43 Total Protein 5.4 g/dL (6.3-8.2) L 02/08/18 05:43 Albumin 3.5 g/dL (3.9-5) L 02/08/18 05:43 Albumin/Globulin Ratio 1.8 % 02/08/18 05:43 Amylase 84 units/L (27-131) 02/07/18 09:55 Lipase 27 units/L (13-60) 02/07/18 09:55 Urine Color Yellow (Yellow) 02/07/18 09:59 Urine Turbidity Clear (Clear) 02/07/18 09:59 Urine pH 5.0 (5.0-7.0) 02/07/18 09:59 Ur Specific [place] 1.029 (1.003-1.030) 02/07/18 09:59 Urine Protein 30 mg/dl mg/dL (Negative) 02/07/18 09:59 Urine Glucose (UA) Neg mg/dL (Negative) 02/07/18 09:59 Urine Ketones 80 mg/dL (Negative) 02/07/18 09:59 Urine Blood Neg (Negative) 02/07/18 09:59 Urine Nitrite Neg (Negative) 02/07/18 09:59 Urine Bilirubin Neg (Negative) 02/07/18 09:59 Urine Urobilinogen 2.0 mg/dL (<2.0) 02/07/18 09:59 Ur Leukocyte Esterase Neg (Negative) 02/07/18 09:59 Urine WBC (Auto) 1.0 /HPF (0.0-6.0) 02/07/18 09:59 Urine RBC (Auto) 3.0 /HPF (0.0-6.0) 02/07/18 09:59 U Epithel Cells (Auto) < 1.0 /HPF (0-13.0) 02/07/18 09:59 Urine Mucus Few /HPF 02/07/18 09:59 Blood Type B POSITIVE 02/07/18 09:55 Antibody Screen Negative 02/07/18 09:55
[2018-02-10] MEDS: MORPHINE IV PRN ×3 (13:22→23:34)
[2018-02-10] MEDS: D5/0.45NS 1,000 ML IV SCH (13:23)
[2018-02-10] MEDS: LEVAQUIN 750MG/150ML 750 MG/150 ML BAG IV SCH (20:00)
[2018-02-11] MEDS: D5/0.45NS 1,000 ML IV SCH (06:29)
[2018-02-11 08:53] LABS: Basophils # (Auto) 0.1 K/mm3 (0.0-0.1); Basophils % (Auto) 0.8 % (0.0-1.8); Eosinophils # (Auto) 0.3 K/mm3 (0.0-0.4); Eosinophils % (Auto) 4.8 % (0.0-4.3); Hematocrit 49.7 % (35.5-45.6); Hemoglobin 16.6 gm/dl (11.8-15.2); Lymphocytes # (Auto) 1.1 K/mm3 (1.2-5.4); Lymphocytes % (Auto) 16.9 % (13.4-35.0); Mean Corpuscular HGB Conc 33 % (32-34); Mean Corpuscular Hemoglobin 29 pg (28-32); Mean Corpuscular Volume 87 fl (84-94); Monocytes # (Auto) 0.8 K/mm3 (0.0-0.8); Monocytes % (Auto) 11.7 % (0.0-7.3); Platelet Count 179 K/mm3 (140-440); Red Blood Count 5.75 M/mm3 (3.65-5.03); Red Cell Distribution Width 13.8 % (13.2-15.2)
[2018-02-11 08:54] LABS: BUN/Creatinine Ratio 4; Blood Urea Nitrogen 4 mg/dL (9-20); Calcium 9.4 mg/dL (8.4-10.2); Hemolysis Index 2
[2018-02-11] MEDS: SODIUM CHLORIDE FLUSH SYRINGE 10 ML IV SCH ×2 (09:48→21:07)
[2018-02-11] MEDS: PEPCID IV SCH ×2 (09:48→21:07)
[2018-02-11] MEDS: MORPHINE IV PRN ×2 (09:48→15:17)
[2018-02-11] MEDS: FLAGYL 500 MG/100 ML 500 MG/100 ML BAG IV SCH ×3 (09:48→23:48)
--- NOTE | 2018-02-11 10:16 | Progress Note ---
Assessment and Plan Assessment and plan: Acute cholecystitis IV antibiotics, IVF resuscitation, monitor uop q shift, bowel rest, NPO status Continue Pain control Patient scheduled for laparoscopic cholecystectomy today. Obesity (BMI 30.0-34.9) Increased physical activity, balanced diet at discharge. DVT prophylaxis SCD to ble while in bed History Interval history: Patient still complains of pain. Otherwise no new issues overnight. Hospitalist Physical - Constitutional Vitals: Temp Pulse Resp BP Pulse Ox 98.4 F 48 L 18 130/50 100 02/11/18 05:35 02/11/18 05:35 02/11/18 05:35 02/11/18 05:35 02/11/18 05:35 General appearance: Present: no acute distress, obese - EENT Eyes: Present: PERRL, EOM intact ENT: hearing intact, clear oral mucosa, dentition normal - Neck Neck: Present: supple, normal ROM - Respiratory Respiratory effort: normal Respiratory: bilateral: CTA - Cardiovascular Rhythm: regular Heart Sounds: Present: S1 & S2. Absent: gallop, rub - Extremities Extremities: no ischemia, No edema, Full ROM - Abdominal General gastrointestinal: soft, non-tender, tender, normal bowel sounds Localized gastrointestinal: tender: RUQ (mod) - Integumentary Integumentary: Present: clear, warm, dry - Neurologic Neurologic: CNII-XII intact, moves all extremities Results - Labs CBC & Chem 7: 02/11/18 08:12 02/11/18 08:12 Labs: Laboratory Last Values WBC 6.5 K/mm3 (4.5-11.0) 02/11/18 08:12 RBC 5.75 M/mm3 (3.65-5.03) H 02/11/18 08:12 Hgb 16.6 gm/dl (11.8-15.2) H 02/11/18 08:12 Hct 49.7 % (35.5-45.6) H 02/11/18 08:12 MCV 87 fl (84-94) 02/11/18 08:12 MCH 29 pg (28-32) 02/11/18 08:12 MCHC 33 % (32-34) 02/11/18 08:12 RDW 13.8 % (13.2-15.2) 02/11/18 08:12 Plt Count 179 K/mm3 (140-440) 02/11/18 08:12 Lymph % (Auto) 16.9 % (13.4-35.0) 02/11/18 08:12 [place] % (Auto) 11.7 % (0.0-7.3) H 02/11/18 08:12 Eos % (Auto) 4.8 % (0.0-4.3) H 02/11/18 08:12 Baso % (Auto) 0.8 % (0.0-1.8) 02/11/18 08:12 Lymph # 1.1 K/mm3 (1.2-5.4) L 02/11/18 08:12 [place] # 0.8 K/mm3 (0.0-0.8) 02/11/18 08:12 Eos # 0.3 K/mm3 (0.0-0.4) 02/11/18 08:12 Baso # 0.1 K/mm3 (0.0-0.1) 02/11/18 08:12 Seg Neutrophils % 65.8 % (40.0-70.0) 02/11/18 08:12 Seg Neutrophils # 4.3 K/mm3 (1.8-7.7) 02/11/18 08:12 PT 12.6 Sec. (12.2-14.9) 02/07/18 09:55 INR 0.90 (0.87-1.13) 02/07/18 09:55 Sodium 141 mmol/L (137-145) 02/11/18 08:12 Potassium 4.1 mmol/L (3.6-5.0) 02/11/18 08:12 Chloride 99.6 mmol/L (98-107) 02/11/18 08:12 Carbon Dioxide 25 mmol/L (22-30) 02/11/18 08:12 Anion Gap 21 mmol/L 02/11/18 08:12 BUN 4 mg/dL (9-20) L 02/11/18 08:12 Creatinine 1.0 mg/dL (0.8-1.5) 02/11/18 08:12 Estimated GFR > 60 ml/min 02/11/18 08:12 BUN/Creatinine Ratio 4 % 02/11/18 08:12 Glucose 87 mg/dL (75-100) 02/11/18 08:12 Lactic Acid 0.80 mmol/L (0.7-2.0) 02/07/18 09:55 Calcium 9.4 mg/dL (8.4-10.2) 02/11/18 08:12 Total Bilirubin 0.80 mg/dL (0.1-1.2) 02/08/18 05:43 Direct Bilirubin < 0.2 mg/dL (0-0.2) 02/07/18 09:55 Indirect Bilirubin 0.5 mg/dL 02/07/18 09:55 AST 21 units/L (5-40) 02/08/18 05:43 ALT 15 units/L (7-56) 02/08/18 05:43 Alkaline Phosphatase 62 units/L (35-129) 02/08/18 05:43 Total Protein 5.4 g/dL (6.3-8.2) L 02/08/18 05:43 Albumin 3.5 g/dL (3.9-5) L 02/08/18 05:43 Albumin/Globulin Ratio 1.8 % 02/08/18 05:43 Amylase 84 units/L (27-131) 02/07/18 09:55 Lipase 27 units/L (13-60) 07 09:55 Urine Color Yellow (Yellow) 02/07/18 09:59 Urine Turbidity Clear (Clear) 02/07/18 09:59 Urine pH 5.0 (5.0-7.0) 02/07/18 09:59 Ur Specific [place] 1.029 (1.003-1.030) 02/07/18 09:59 Urine Protein 30 mg/dl mg/dL (Negative) 02/07/18 09:59 Urine Glucose (UA) Neg mg/dL (Negative) 02/07/18 09:59 Urine Ketones 80 mg/dL (Negative) 02/07/18 09:59 Urine Blood Neg (Negative) 02/07/18 09:59 Urine Nitrite Neg (Negative) 02/07/18 09:59 Urine Bilirubin Neg (Negative) 02/07/18 09:59 Urine Urobilinogen 2.0 mg/dL (<2.0) 07 09:59 Ur Leukocyte Esterase Neg (Negative) 02/07/18 09:59 Urine WBC (Auto) 1.0 /HPF (0.0-6.0) 02/07/18 09:59 Urine RBC (Auto) 3.0 /HPF (0.0-6.0) 02/07/18 09:59 U Epithel Cells (Auto) < 1.0 /HPF (0-13.0) 02/07/18 09:59 Urine Mucus Few /HPF 02/07/18 09:59 Blood Type B POSITIVE 02/07/18 09:55 Antibody Screen Negative 02/07/18 09:55
[2018-02-11] MEDS: ZOFRAN IV PRN (15:27)
--- NOTE | 2018-02-11 15:41 | Progress Note ---
Assessment and Plan Pt status quo. Abd soft. still no O.R. time available will have to reschedule for am discussed with pt Selected Entries 02/11/18 11:01 Temperature 98.2 F Pulse Rate 61 Respiratory 18 Rate Blood Pressure 116/70 Laboratory Tests 02/11/18 02/11/18 08:12 08:12 WBC 6.5 Hgb 16.6 H Hct 49.7 H Sodium 141 Potassium 4.1 Chloride 99.6 Carbon Dioxide 25 BUN 4 L Creatinine 1.0 Objective Vital Signs - 12hr 02/11/18 02/11/18 05:35 11:01 Temperature 98.4 F 98.2 F Pulse Rate 48 L 61 Respiratory 18 18 Rate Blood Pressure 130/50 116/70 O2 Sat by Pulse 100 99 Oximetry - Labs 02/11/18 08:12 02/11/18 08:12 Diabetes panel 02/11/18 Range/Units 08:12 Sodium 141 (137-145) mmol/L Potassium 4.1 (3.6-5.0) mmol/L Chloride 99.6 (98-107) mmol/L Carbon Dioxide 25 (22-30) mmol/L BUN 4 L (9-20) mg/dL Creatinine 1.0 (0.8-1.5) mg/dL Glucose 87 (75-100) mg/dL Calcium 9.4 (8.4-10.2) mg/dL Calcium panel 02/11/18 Range/Units 08:12 Calcium 9.4 (8.4-10.2) mg/dL Pituitary panel 02/11/18 Range/Units 08:12 Sodium 141 (137-145) mmol/L Potassium 4.1 (3.6-5.0) mmol/L Chloride 99.6 (98-107) mmol/L Carbon Dioxide 25 (22-30) mmol/L BUN 4 L (9-20) mg/dL Creatinine 1.0 (0.8-1.5) mg/dL Glucose 87 (75-100) mg/dL Calcium 9.4 (8.4-10.2) mg/dL Adrenal panel 02/11/18 Range/Units 08:12 Sodium 141 (137-145) mmol/L Potassium 4.1 (3.6-5.0) mmol/L Chloride 99.6 (98-107) mmol/L Carbon Dioxide 25 (22-30) mmol/L BUN 4 L (9-20) mg/dL Creatinine 1.0 (0.8-1.5) mg/dL Glucose 87 (75-100) mg/dL Calcium 9.4 (8.4-10.2) mg/dL
[2018-02-11] MEDS ORDERED: ASPIRIN ONE (18:54)
[2018-02-11] MEDS: LEVAQUIN 750MG/150ML 750 MG/150 ML BAG IV SCH (19:28)
[2018-02-12] MEDS: D5/0.45NS 1,000 ML IV SCH (06:08)
[2018-02-12] MEDS: FLAGYL 500 MG/100 ML 500 MG/100 ML BAG IV SCH ×2 (08:17→16:15)
[2018-02-12] MEDS ORDERED: NACL 0.9% 1000 ML 1,000 ML ONE (08:59)
[2018-02-12] MEDS: PEPCID IV SCH ×2 (09:03→23:53)
--- NOTE | 2018-02-12 09:37 | Anesthesia Day of Surgery ---
Anesthesia Day of Surgery - Day of Surgery Patient Examined: Yes Patient H&P Reviewed: Yes Patient is NPO: Yes
--- NOTE | 2018-02-12 09:37 | Anesthesia Consultation ---
Anesthesia Consult and Med Hx Date of service: 02/12/18 - Airway Anesthetic Teeth Evaluation: Good ROM Head & Neck: Adequate Mental/Hyoid Distance: Adequate Mallampati Class: Class II Intubation Access Assessment: Good - Pulmonary Exam CTA: Yes - Cardiac Exam Cardiac Exam: No Murmur - Pre-Operative Health Status ASA Pre-Surgery Classification: ASA1 - Pulmonary Hx Asthma: No Hx Pneumonia: No - Other Systems Hx Cancer: No
[2018-02-12] MEDS ORDERED: DIPRIVAN 10 MG/ML IV ONE (09:43)
[2018-02-12] MEDS: MORPHINE IV PRN (09:43)
[2018-02-12] MEDS ORDERED: DILAUDID ONE (09:43)
[2018-02-12] MEDS ORDERED: ZEMURON IV ONE (09:45)
[2018-02-12] MEDS ORDERED: XYLOCAINE MPF 2% ONE (09:45)
[2018-02-12] MEDS ORDERED: MARCAINE-EPI 0.5%-1:200,000 INFILTRATI ONE ×2 (09:59→10:03)
[2018-02-12] MEDS ORDERED: NACL 0.9% 1000 ML 1,000 ML IV SCH (10:00)
[2018-02-12] MEDS ORDERED: NACL 0.9% IR ONE ×2 (10:03)
[2018-02-12] MEDS ORDERED: VERSED ONE ×2 (10:10→11:14)
[2018-02-12] MEDS ORDERED: SUBLIMAZE ONE (10:27)
[2018-02-12] MEDS ORDERED: ROBINUL ONE (10:27)
[2018-02-12] MEDS ORDERED: DECADRON ONE (10:27)
[2018-02-12] MEDS ORDERED: BLOXIVERZ ONE (10:27)
[2018-02-12] MEDS ORDERED: TORADOL ONE (10:27)
[2018-02-12] MEDS ORDERED: ZOFRAN ONE (10:27)
[2018-02-12] MEDS ORDERED: KETALAR ONE (11:17)
--- NOTE | 2018-02-12 11:45 | Operative Report ---
PREOPERATIVE DIAGNOSIS: Cholecystitis. POSTOPERATIVE DIAGNOSIS: Cholecystitis. PROCEDURE: Laparoscopic cholecystectomy. SURGEON: Paolo Malcolm MD EGG SMELLER: Dr. Beckett. ANESTHESIA: General. ESTIMATED BLOOD LOSS: Minimal. DRAINS: No drains. COMPLICATIONS: None. DESCRIPTION OF PROCEDURE: The patient was taken to the operating room, prepped and draped in usual sterile fashion. A Veress needle was inserted and CO2 insufflation begun. A 5 mm trocar was then inserted and camera inserted. All other trocars inserted under direct visualization. Gallbladder was then grasped at the fundus and infundibulum and retracted towards the right subphrenic space. Dissection was then carried out along Calot's triangle. The cystic duct and artery were delineated in the entire course. Both were then doubly clipped and transected. Hook electrocautery was used to dissect the gallbladder from the overlying liver bed. Prior to complete removal, the liver bed was inspected for bleeding and noted to be dry. The cystic duct and artery stumps were once again visualized. The clips were noted to be securely in place with no evidence of bleeding or bile leak. The entire right upper quadrant of the abdomen was copiously irrigated and suctioned dry. Gallbladder was then completely freed and brought out through the subxiphoid port. This area was inspected for bleeding and noted to be dry. Subxiphoid trocar was then gently reinserted. All other 5 mm trocars were removed under direct visualization. No bleeding or oozing noted. The subxiphoid trocar was then used to expel the CO2 and the trocar removed. The fascia at this site was closed with a [id number] 0 Vicryl suture. The skin at all port sites was closed with subcuticular 4-0 Vicryl. A 0.5% Marcaine was infiltrated over the port site for postoperative pain relief. The patient tolerated the procedure well and left OR in stable condition. JOB# [id number] LAVINIA/GIGI
--- NOTE | 2018-02-12 15:53 | Progress Note ---
Assessment and Plan Assessment and plan: Acute cholecystitis IV antibiotics, IVF resuscitation, monitor uop q shift, bowel rest, NPO status Continue Pain control S/p laparoscopic cholecystectomy today. Patient denied fever, abdominal pain, wants to go home Per surgery ice chips and discharge in the morning Obesity (BMI 30.0-34.9) Increased physical activity, balanced diet at discharge. DVT prophylaxis SCD to ble while in bed History Interval history: Patient was seen and evaluated. Patient did have fever or abdominal pain. Patient wants to go home. Complaining being nothing by mouth for many days. Hospitalist Physical - Physical exam Narrative exam: Not in cardiopulmonary distress. The patient appeared well nourished and normally developed. Vital signs as documented. Head exam is unremarkable. No scleral icterus . Neck is without jugular venous distension, thyromegaly, or carotid bruits. Lungs are clear to auscultation. Cardiac exam reveals regular rate and Rhythm. First and second heart sounds normal. No murmurs, rubs or gallops. Abdominal exam reveals normal bowel sounds, no masses, no organomegaly and no aortic enlargement. Extremities are nonedematous and both femoral and pedal pulses are normal. SOUND PRINTER: Alert and oriented 3. No focal weakness. - Constitutional Vitals: Temp Pulse Resp BP Pulse Ox 97.5 F L 68 15 122/61 97 02/12/18 12:50 02/12/18 12:50 02/12/18 12:50 02/12/18 12:50 02/12/18 12:50 General appearance: Present: no acute distress, obese Results - Labs CBC & Chem 7: 02/11/18 08:12 02/11/18 08:12 Labs: Laboratory Last Values WBC 6.5 K/mm3 (4.5-11.0) 02/11/18 08:12 RBC 5.75 M/mm3 (3.65-5.03) H 02/11/18 08:12 Hgb 16.6 gm/dl (11.8-15.2) H 02/11/18 08:12 Hct 49.7 % (35.5-45.6) H 02/11/18 08:12 MCV 87 fl (84-94) 02/11/18 08:12 MCH 29 pg (28-32) 02/11/18 08:12 MCHC 33 % (32-34) 02/11/18 08:12 RDW 13.8 % (13.2-15.2) 02/11/18 08:12 Plt Count 179 K/mm3 (140-440) 02/11/18 08:12 Lymph % (Auto) 16.9 % (13.4-35.0) 02/11/18 08:12 [place] % (Auto) 11.7 % (0.0-7.3) H 02/11/18 08:12 Eos % (Auto) 4.8 % (0.0-4.3) H 02/11/18 08:12 Baso % (Auto) 0.8 % (0.0-1.8) 02/11/18 08:12 Lymph # 1.1 K/mm3 (1.2-5.4) L 02/11/18 08:12 [place] # 0.8 K/mm3 (0.0-0.8) 02/11/18 08:12 Eos # 0.3 K/mm3 (0.0-0.4) 02/11/18 08:12 Baso # 0.1 K/mm3 (0.0-0.1) 02/11/18 08:12 Seg Neutrophils % 65.8 % (40.0-70.0) 02/11/18 08:12 Seg Neutrophils # 4.3 K/mm3 (1.8-7.7) 02/11/18 08:12 PT 12.6 Sec. (12.2-14.9) 02/07/18 09:55 INR 0.90 (0.87-1.13) 02/07/18 09:55 Sodium 141 mmol/L (137-145) 02/11/18 08:12 Potassium 4.1 mmol/L (3.6-5.0) 02/11/18 08:12 Chloride 99.6 mmol/L (98-107) 02/11/18 08:12 Carbon Dioxide 25 mmol/L (22-30) 02/11/18 08:12 Anion Gap 21 mmol/L 02/11/18 08:12 BUN 4 mg/dL (9-20) L 02/11/18 08:12 Creatinine 1.0 mg/dL (0.8-1.5) 02/11/18 08:12 Estimated GFR > 60 ml/min 02/11/18 08:12 BUN/Creatinine Ratio 4 % 02/11/18 08:12 Glucose 87 mg/dL (75-100) 02/11/18 08:12 Lactic Acid 0.80 mmol/L (0.7-2.0) 02/07/18 09:55 Calcium 9.4 mg/dL (8.4-10.2) 02/11/18 08:12 Total Bilirubin 0.80 mg/dL (0.1-1.2) 02/08/18 05:43 Direct Bilirubin < 0.2 mg/dL (0-0.2) 02/07/18 09:55 Indirect Bilirubin 0.5 mg/dL 02/07/18 09:55 AST 21 units/L (5-40) 02/08/18 05:43 ALT 15 units/L (7-56) 02/08/18 05:43 Alkaline Phosphatase 62 units/L (35-129) 02/08/18 05:43 Total Protein 5.4 g/dL (6.3-8.2) L 02/08/18 05:43 Albumin 3.5 g/dL (3.9-5) L 02/08/18 05:43 Albumin/Globulin Ratio 1.8 % 02/08/18 05:43 Amylase 84 units/L (27-131) 02/07/18 09:55 Lipase 27 units/L (13-60) 02/07/18 09:55 Urine Color Yellow (Yellow) 02/07/18 09:59 Urine Turbidity Clear (Clear) 02/07/18 09:59 Urine pH 5.0 (5.0-7.0) 02/07/18 09:59 Ur Specific [place] 1.029 (1.003-1.030) 02/07/18 09:59 Urine Protein 30 mg/dl mg/dL (Negative) 02/07/18 09:59 Urine Glucose (UA) Neg mg/dL (Negative) 02/07/18 09:59 Urine Ketones 80 mg/dL (Negative) 02/07/18 09:59 Urine Blood Neg (Negative) 02/07/18 09:59 Urine Nitrite Neg (Negative) 02/07/18 09:59 Urine Bilirubin Neg (Negative) 02/07/18 09:59 Urine Urobilinogen 2.0 mg/dL (<2.0) 02/07/18 09:59 Ur Leukocyte Esterase Neg (Negative) 02/07/18 09:59 Urine WBC (Auto) 1.0 /HPF (0.0-6.0) 02/07/18 09:59 Urine RBC (Auto) 3.0 /HPF (0.0-6.0) 02/07/18 09:59 U Epithel Cells (Auto) < 1.0 /HPF (0-13.0) 02/07/18 09:59 Urine Mucus Few /HPF 02/07/18 09:59 Blood Type B POSITIVE 02/07/18 09:55 Antibody Screen Negative 02/07/18 09:55
[2018-02-12] MEDS: SODIUM CHLORIDE FLUSH SYRINGE 10 ML IV SCH (18:26)
[2018-02-13 06:26] LABS: Basophils % (Auto) 0.2 % (0.0-1.8); Hematocrit 45.2 % (35.5-45.6); Hemoglobin 15.3 gm/dl (11.8-15.2); Lymphocytes % (Auto) 7.2 % (13.4-35.0); Mean Corpuscular HGB Conc 34 % (32-34); Mean Corpuscular Hemoglobin 29 pg (28-32); Mean Corpuscular Volume 84 fl (84-94); Monocytes # (Auto) 1.3 K/mm3 (0.0-0.8); Monocytes % (Auto) 9.4 % (0.0-7.3); Platelet Count 214 K/mm3 (140-440); Red Blood Count 5.36 M/mm3 (3.65-5.03); Red Cell Distribution Width 13.6 % (13.2-15.2)
[2018-02-13 06:37] VITALS: BP 125/56
[2018-02-13 07:45] LABS: Alanine Aminotransferase 23 units/L (7-56); Albumin 3.5 g/dL (3.9-5); BUN/Creatinine Ratio 5; Blood Urea Nitrogen 4 mg/dL (9-20); Calcium 8.9 mg/dL (8.4-10.2); Hemolysis Index 5
--- NOTE | 2018-02-13 07:47 | Progress Note ---
Assessment and Plan POD # 1 Pt "feeling great" without compl Abd soft, non tender LFT's wnl low fat cl liq diet may d/c today from surg perspective if diet alberto advance to solid low fat diet at home in am rto I wk Selected Entries 02/12/18 02/13/18 17:47 05:36 Temperature 98.8 F Pulse Rate 56 L Respiratory 15 Rate Blood Pressure 125/56 Laboratory Tests 02/13/18 02/13/18 05:09 05:09 WBC 13.7 H Hgb 15.3 H Hct 45.2 Total Bilirubin 0.40 AST 41 H ALT 23 Alkaline Phosphatase 71 Objective Vital Signs - 12hr 02/12/18 02/13/18 22:16 05:36 Temperature 99.0 F 98.8 F Pulse Rate 57 L 56 L Respiratory 24 30 H Rate Blood Pressure 123/70 125/56 O2 Sat by Pulse 98 96 Oximetry - Labs 02/13/18 05:09 02/13/18 05:09 Diabetes panel 02/13/18 Range/Units 05:09 Sodium 140 (137-145) mmol/L Potassium 3.9 (3.6-5.0) mmol/L Chloride 101.9 (98-107) mmol/L Carbon Dioxide 21 L (22-30) mmol/L BUN 4 L (9-20) mg/dL Creatinine 0.8 (0.8-1.5) mg/dL Glucose 87 (75-100) mg/dL Calcium 8.9 (8.4-10.2) mg/dL AST 41 H (5-40) units/L ALT 23 (7-56) units/L Alkaline Phosphatase 71 (35-129) units/L Total Protein 5.8 L (6.3-8.2) g/dL Albumin 3.5 L (3.9-5) g/dL Calcium panel 02/13/18 Range/Units 05:09 Calcium 8.9 (8.4-10.2) mg/dL Albumin 3.5 L (3.9-5) g/dL Pituitary panel 02/13/18 Range/Units 05:09 Sodium 140 (137-145) mmol/L Potassium 3.9 (3.6-5.0) mmol/L Chloride 101.9 (98-107) mmol/L Carbon Dioxide 21 L (22-30) mmol/L BUN 4 L (9-20) mg/dL Creatinine 0.8 (0.8-1.5) mg/dL Glucose 87 (75-100) mg/dL Calcium 8.9 (8.4-10.2) mg/dL Adrenal panel 02/13/18 Range/Units 05:09 Sodium 140 (137-145) mmol/L Potassium 3.9 (3.6-5.0) mmol/L Chloride 101.9 (98-107) mmol/L Carbon Dioxide 21 L (22-30) mmol/L BUN 4 L (9-20) mg/dL Creatinine 0.8 (0.8-1.5) mg/dL Glucose 87 (75-100) mg/dL Calcium 8.9 (8.4-10.2) mg/dL Total Bilirubin 0.40 (0.1-1.2) mg/dL AST 41 H (5-40) units/L ALT 23 (7-56) units/L Alkaline Phosphatase 71 (35-129) units/L Total Protein 5.8 L (6.3-8.2) g/dL Albumin 3.5 L (3.9-5) g/dL
--- NOTE | 2018-02-13 07:54 | Discharge Summary ---
Providers - Providers Date of Admission: 02/07/18 12:08 Date of discharge: 02/13/18 Attending physician: PAT DUKE MD 02/07/18 14:49 Consult to Physician [CONS] Routine Comment: Consulting Provider: DOMINIC DELGADO Physician Instructions: Reason For Exam: cholecystitis Primary care physician: [employer]IEF [employer]RARIAN Hospitalization Reason for admission: Chelecystitis Condition: Stable Pertinent studies: Abdominal U/S: Subtle cholecystitis couldn't be ruled out Hospital course: Admission H&P 27 YO Male with Obesity, cholelithiasis with biliary colic presents to ED for evaluation. Pt states that he has experienced abdominal pain for the past 1 week , with worsening symptoms over the past 3 days. Pt states that pain is 8/10, associated with nausea, and multiple episodes of vomiting, with radiation of abdominal pain to his back. Pain is worsened with meals, constant. Pt seen and evaluated in ED and found to have Acute cholecystitis. Pt admitted to medical floor. Surgery team consulted in ED. Pt placed on Iv antibiotics in ED. Patient was admitted to the floor for cholecystitis was treated with antibiotics and laparoscopic cholecystectomy was done discharged home in a stable condition. Patient tolerated low-fat diet. Patient finished 7 days of IV antibiotics. She didn't have any abdominal pain, fever. Disposition: DC-01 TO HOME OR SELFCARE Time spent for discharge: 32 minutes - Discharge Diagnoses (1) Acute cholecystitis Status: Acute (2) Obesity (BMI 30.0-34.9) Status: Acute Core Measure Documentation - Palliative Care Palliative Care/ Comfort Measures: Not Applicable - Core Measures Any of the following diagnoses?: none Exam - Physical Exam Narrative exam: Not in cardiopulmonary distress. The patient is obese. Vital signs as documented. Head exam is unremarkable. No scleral icterus . Neck is without jugular venous distension, thyromegaly, or carotid bruits. Lungs are clear to auscultation. Cardiac exam reveals regular rate and Rhythm. First and second heart sounds normal. No murmurs, rubs or gallops. Abdominal exam reveals normal bowel sounds, no masses, no organomegaly and no aortic enlargement. clean laparascopic incision sites. Extremities are nonedematous and both femoral and pedal pulses are normal. DATA REPORT ANALYST: Alert and oriented 3. No focal weakness. - Constitutional Vitals: Temp Pulse Resp BP Pulse Ox 98.8 F 56 L 30 H 125/56 96 02/13/18 05:36 02/13/18 05:36 02/13/18 05:36 02/13/18 05:36 02/13/18 05:36 Plan Activity: no restrictions Weight Bearing Status: Full Weight Bearing Diet: low fat Wound: per your surgeon's advice Additional Instructions: Follow up at [facility] in 1-2 weeks Follow up with: AYAAN SHIPLEY MD [Primary Care Provider] - 3-5 Days DOMINIC DELGADO MD [Staff Physician] - 7 Days
[2018-02-13] MEDS: PEPCID IV SCH (10:58)
[2018-02-13] MEDS: SODIUM CHLORIDE FLUSH SYRINGE 10 ML IV SCH (10:59)
== END 2018-02-13 11:16 | disposition home or self-care (01) | DRG 419 ==
LOC: ED 07:54 → 3A 12:08
PROVIDERS: ADMIT Internal Medicine; ATTEND Internal Medicine
PROC: 0FT44ZZ Resection of Gallbladder, Percutaneous Endoscopic Approach (ICD-10-PCS; principal; 2018-02-12)
DX: K80.62 Calculus of gallbladder and bile duct with acute cholecystitis without obstruction (principal); F12.90 Cannabis use, unspecified, uncomplicated; E66.9 Obesity, unspecified; Z68.30 Body mass index [BMI] 30.0-30.9, adult; Z87.891 Personal history of nicotine dependence
CPT/HCPCS: 36415; 76705; 80048; 80053; 80074; 81001; 82140; 82150; 83690; 85025; 85027; 85610; 86850; 86900; 86901; 88304; 96361; 96374; 96375; A4217; J1100; J1170; J1885; J1956; J2250; J2270; J2405; J2704; J2710; J3010; J7030; J7120